=== PATIENT | female | born 2000 | race Caucasian/White ===

== ENCOUNTER 2022-01-17 00:29 | Emergency (ER) | payer BC ==
[~2022-01-17 00:29] MED LIST: PROAIR DIGIHAL90 MCG INH
== END 2022-01-17 02:05 | disposition home or self-care (01) ==
LOC: ER1 00:29
DX: S93.492A Sprain of other ligament of left ankle, initial encounter (principal); W19.XXXA Unspecified fall, initial encounter
CPT/HCPCS: 73610; 99283